=== PATIENT | female | born 1980 | race Caucasian/White ===

== ENCOUNTER 2019-02-13 07:25 | Emergency (ER) | payer OTHER ==
[~2019-02-13] VITALS: Ht 162.6 cm; Wt 65.3 kg
[2019-02-13 07:37] VITALS: Ht 162.6 cm; Wt 65.3 kg
[2019-02-13 08:32] VITALS: BP 110/79
[2019-02-13 09:16] LABS: UA SPECIFIC GRAVITY 1.015 (1.005-1.035); microscopic required? YES
[2019-02-13 09:17] LABS: urine erythrocyte 1+ (NEGATIVE)
== END 2019-02-13 10:15 | disposition home or self-care (01) ==
LOC: ED 07:25
PROVIDERS: Emergency Medicine
DX: N76.0 Acute vaginitis (principal); B96.89 Other specified bacterial agents as the cause of diseases classified elsewhere; N39.0 Urinary tract infection, site not specified; R10.31 Right lower quadrant pain; R10.32 Left lower quadrant pain

== ENCOUNTER 2019-03-06 10:21 | Emergency (ER) | payer OTHER ==
[~2019-03-06] VITALS: Ht 154.9 cm; Wt 62.6 kg
[2019-03-06 10:30] VITALS: BP 129/82; Ht 154.9 cm; Wt 62.6 kg
== END 2019-03-06 12:23 | disposition home or self-care (01) ==
LOC: ED 10:21
DX: N39.0 Urinary tract infection, site not specified (principal)
CPT/HCPCS: J1885

== ENCOUNTER 2019-04-05 07:34 | Emergency (ER) | payer OTHER ==
[~2019-04-05] VITALS: Ht 160 cm; Wt 65.8 kg
[2019-04-05 08:26] LABS: PLATELET COUNT 249 x10^3mcL (130-400); RED CELL DISTRIBUTION WIDTH 13.6 % (11.5-14.5)
[2019-04-05 08:28] LABS: BASOPHIL % 0 % (0-2)
[2019-04-05 08:44] LABS: CALCIUM 8.5 mg/dL (8.5-10.1); CARBON DIOXIDE 28.8 mmol/L (21-32); CHLORIDE SERUM 105 mmol/L (98-107); CREATININE SERUM 0.6 mg/dL (0.6-1.0); GFR1 > 60 mL/min; GLUCOSE SERUM 121 mg/dL (74-106); POTASSIUM SERUM 4.3 mmol/L (3.5-5.1); SODIUM SERUM 139 mmol/L (136-145)
[2019-04-05 08:49] LABS: ALBUMIN 3.4 g/dL (3.4-5.0); ALKALINE PHOSPHATASE 65 U/L (46-116); ALT/SGPT 31 U/L (14-59); AST/SGOT 10 U/L (15-37); BILIRUBIN TOTAL 0.3 mg/dL (0.20-1.00); LIPASE 93 IU/L (73-393); TOTAL PROTEIN, SERUM 7.1 g/dL (6.4-8.2)
[2019-04-05 09:40] VITALS: BP 134/81
== END 2019-04-05 09:40 | disposition home or self-care (01) ==
LOC: ED 07:34
PROVIDERS: Emergency Medicine
DX: K29.70 Gastritis, unspecified, without bleeding (principal); N83.209 Unspecified ovarian cyst, unspecified side; N80.9 Endometriosis, unspecified; Z90.721 Acquired absence of ovaries, unilateral
CPT/HCPCS: 36415; Q0092

== ENCOUNTER 2019-09-11 17:48 | Emergency (ER) | payer OTHER ==
[~2019-09-11] VITALS: Ht 160 cm; Wt 67.3 kg
[2019-09-11 18:28] VITALS: Ht 160 cm; Wt 67.3 kg
[2019-09-11 20:37] VITALS: BP 116/76
== END 2019-09-11 20:37 | disposition home or self-care (01) ==
LOC: ED 17:48
DX: M79.642 Pain in left hand (principal)

== ENCOUNTER 2019-10-07 09:52 | Emergency (ER) | payer OTHER ==
[~2019-10-07] VITALS: Ht 160 cm; Wt 67.1 kg
[2019-10-07 09:55] VITALS: Ht 160 cm; Wt 67.1 kg
[2019-10-07 10:29] LABS: BASOPHIL % 0.6 % (0-2); PLATELET COUNT 236 x10^3mcL (130-400); RED CELL DISTRIBUTION WIDTH 13.1 % (11.5-14.5)
[2019-10-07 10:34] LABS: CALCIUM 9.3 mg/dL (8.5-10.1); CARBON DIOXIDE 27.6 mmol/L (21-32); CHLORIDE SERUM 102 mmol/L (98-107); CREATININE SERUM 0.5 mg/dL (0.6-1.0); GFR1 > 60 mL/min; GLUCOSE SERUM 81 mg/dL (74-106); POTASSIUM SERUM 3.7 mmol/L (3.5-5.1); SODIUM SERUM 138 mmol/L (136-145)
[2019-10-07 10:41] LABS: ALBUMIN 3.7 g/dL (3.4-5.0); ALKALINE PHOSPHATASE 77 U/L (46-116); ALT/SGPT 41 U/L (14-59); AST/SGOT 21 U/L (15-37); TOTAL PROTEIN, SERUM 7.8 g/dL (6.4-8.2)
[2019-10-07 11:31] VITALS: BP 119/85
== END 2019-10-07 11:31 | disposition home or self-care (01) ==
LOC: ED 09:52
DX: K52.9 Noninfective gastroenteritis and colitis, unspecified (principal)
CPT/HCPCS: 36415; 87491; 87591